=== PATIENT | female | born 1995 | race Caucasian/White ===

== ENCOUNTER → 2020-04-28 | Outpatient (CLI) | payer BC, SELFPAY ==
[2020-04-28 13:57] VITALS: BMI 35.9
[2020-05-01 16:07] LABS: HPV Reflexed? NOT INDICATED
== END | disposition home or self-care (01) ==
LOC: LABSPEC 16:21
PROVIDERS: Visit Provider Nurse Practitioner Women's Health
DX: Z12.4 Encounter for screening for malignant neoplasm of cervix (principal)
CPT/HCPCS: 88175; G0145

== ENCOUNTER → 2020-12-23 11:20 | Outpatient (CLI) | payer BC, SELFPAY ==
[2020-12-23 12:01] LABS: Amphetamine Urine VISTA NEGATIVE (<1000 ng/mL); Barbiturate Urine VISTA NEGATIVE (< 200 ng/mL); Benzodiazepine Urine VISTA NEGATIVE (< 200 ng/mL); Cocaine Urine VISTA NEGATIVE (< 300 ng/mL); Ecstacy Urine VISTA NEGATIVE (< 500 ng/mL); Methadone Urine VISTA NEGATIVE (< 300 ng/mL); PCP Urine VISTA NEGATIVE (< 25 ng/mL); THC Urine VISTA NEGATIVE (< 50 ng/mL); Vista UDS pH Range 5
[2020-12-24 20:08] LABS: Chlamydia By Nucleic Acid AMP Negative (Negative)
[2020-12-24 20:53] LABS: Gonococcus By Nucleic Acid AMP Negative (Negative)
== END ==
PROVIDERS: Visit Provider Obstetrics & Gynecology
DX: Z34.90 Encounter for supervision of normal pregnancy, unspecified, unspecified trimester (principal)
CPT/HCPCS: 80307; 87086; 87491; 87591

== ENCOUNTER → 2021-01-04 10:05 | Outpatient (CLI) | payer BC, SELFPAY ==
[2021-01-04 10:32] LABS: Absolute Lymphocyte Count 2.27 X10^3/uL (0.83-4.51); Absolute Neutrophil Count 8.2 X10^3/uL (2.0-7.7); Basophil# 0.08 X10^3/uL; Basophil% 0.7 % (0-1); Eosinophil# 0.23 X10^3/uL; Eosinophils% 1.9 % (0-5); Hematocrit 40.6 % (37-47); Hemoglobin 13.2 g/dL (12.0-15.0); Lymphocyte # 2.27 X10^3/ul (0.83-4.51); Lymphocyte % 19.2 % (19-41); Mean Corp Hgb Conc 32.5 g/dL (32-36); Mean Corpuscular Hgb 28.6 pg (27.0-32.0); Mean Corpuscular Volume 88.1 fL (81-99); Mean Platelet Vol. 10.7 fl (6.2-12.0); Monocyte# 0.92 X10^3/uL; Monocyte% 7.8 % (0-10); NRBC Flagged by Analyzer 0 % (0-5); Neutrophil # 8.22 X10^3/uL (2.7-7.7); Neutrophil % 69.5 % (47-70); Platelet Count 330 K/mm3 (150-450); RBC Distribution Width CV 13.9 % (11.6-14.6); RBC Distribution Width SD 44.5 fl (35.1-43.9); Red Blood Count 4.61 M/mm3 (4.2-5.4); White Blood Count 11.8 K/mm3 (4.4-11.0)
[2021-01-04 11:00] LABS: Glucose Challenge Gest 1H 50g 82 mg/dL (70-140)
[2021-01-04 11:25] LABS: NATERA MAILED SPECIMEN
[2021-01-04 11:32] LABS: HIV - WCH Non-Reactive (Nonreactive); Hepatitis B Surface Antigen Non-Reactive (Nonreactive); Hepatitis C Antibody Non-Reactive (Nonreactive); Rubella IgG Reactive (Nonreactive); Syphilis Antibodies Non-reactive
== END ==
PROVIDERS: Referring Provider Obstetrics & Gynecology; Visit Provider Obstetrics & Gynecology
DX: O99.211 Obesity complicating pregnancy, first trimester (principal); E66.9 Obesity, unspecified; Z3A.00 Weeks of gestation of pregnancy not specified
CPT/HCPCS: 36415; 82950; 85025; 86703; 86762; 86780; 86803; 86850; 86900; 86901; 87340

== ENCOUNTER 2021-02-27 09:11 | Outpatient (CLI) | payer BC, SELFPAY ==
[2021-02-27] MEDS: 0.9% Saline Lock 10 ML Syringe IV (09:30)
[2021-02-27 09:34] VITALS: BP 121/72; PULSE 94; RESP 16; TEMP 36.8; O2SAT 16; BMI 37.8
[2021-02-27 10:30] VITALS: BP 124/64; PULSE 91; RESP 16; TEMP 36.6; O2SAT 98
[2021-02-27 11:34] VITALS: BP 110/67; PULSE 89; RESP 16; TEMP 36.7; O2SAT 99
== END 2021-02-27 11:35 | disposition home or self-care (01) ==
LOC: MS3OUT 09:12 → MS3 09:12
PROVIDERS: Referring Provider Nurse Practitioner Adult Health; Visit Provider Nurse Practitioner Adult Health
DX: Z23 Encounter for immunization (principal); U07.1 COVID-19
CPT/HCPCS: J7050; M0245; Q0245; A4216

== ENCOUNTER 2021-05-03 13:59 | Outpatient (CLI) | payer BC, SELFPAY ==
[2021-05-03 14:36] LABS: Absolute Lymphocyte Count 2.04 X10^3/uL (0.83-4.51); Absolute Neutrophil Count 9.1 X10^3/uL (2.0-7.7); Basophil# 0.06 X10^3/uL; Basophil% 0.5 % (0-1); Eosinophil# 0.17 X10^3/uL; Eosinophils% 1.4 % (0-5); Hematocrit 33.9 % (37-47); Hemoglobin 11.1 g/dL (12.0-15.0); Lymphocyte # 2.04 X10^3/ul (0.83-4.51); Lymphocyte % 16.8 % (19-41); Mean Corp Hgb Conc 32.7 g/dL (32-36); Mean Corpuscular Hgb 28.4 pg (27.0-32.0); Mean Corpuscular Volume 86.7 fL (81-99); Mean Platelet Vol. 10.5 fl (6.2-12.0); Monocyte# 0.67 X10^3/uL; Monocyte% 5.5 % (0-10); NRBC Flagged by Analyzer 0 % (0-5); Neutrophil # 9.13 X10^3/uL (2.7-7.7); Neutrophil % 75.1 % (47-70); Platelet Count 294 K/mm3 (150-450); RBC Distribution Width CV 14.2 % (11.6-14.6); RBC Distribution Width SD 44.6 fl (35.1-43.9); Red Blood Count 3.91 M/mm3 (4.2-5.4); White Blood Count 12.2 K/mm3 (4.4-11.0)
[2021-05-03 14:53] LABS: Glucose Challenge Gest 1H 50g 148 mg/dL (70-140)
== END 2021-05-03 23:59 | disposition short-term general hospital (02) ==
PROVIDERS: Referring Provider Obstetrics & Gynecology; Visit Provider Obstetrics & Gynecology
DX: O26.899 Other specified pregnancy related conditions, unspecified trimester (principal); Z67.91 Unspecified blood type, Rh negative; Z3A.00 Weeks of gestation of pregnancy not specified
CPT/HCPCS: 36415; 82950; 85025; 86850; 86900; 86901

== ENCOUNTER 2021-05-07 12:55 | Outpatient (CLI) | payer BC, SELFPAY ==
--- NOTE | 2021-05-07 13:00 | US_ITS ---
STUDY: SECOND AND THIRD TRIMESTER OBSTETRICAL ULTRASOUND - LIMITED REASON FOR EXAM: Female, 26 years old growth LMP: 10/16/2020. PRIOR ULTRASOUND: None. TECHNIQUE: Transabdominal TECHNICAL QUALITY: Adequate. FINDINGS: There is a single intrauterine fetus. The fetus is in a breech presentation. There is demonstrated cardiac activity with a heart rate of 138 bpm. There is a normal amniotic fluid volume. The largest amniotic fluid pocket measures 5.83 cm. The amniotic fluid index (NIRANJAN) is 16.49 cm. The placenta is posterior in location and is not low lying. There are Grade 0 placental changes. The cervix measures 3.4 cm in length. BIOMETRY: BPD: 7.79 cm: 31 weeks, 1 days HC: 28.94 cm: 31 weeks, 6 days AC: 25.49 cm: 29 weeks, 4 days FL: 5.62 cm: 29 weeks, 3 days Age by LMP: 29 weeks, 0 days. ALEXANDRA by LMP: 07/23/2021. age by current US: 30 weeks, 4 days. ALEXANDRA by current US: 07/12/2021. Estimated weight: 1484 grams, +/- 223 grams, 72 percentile. US/OB Limited With Biometrics IMPRESSION: Single live intrauterine gestation with a mean gestational age of 30 weeks and 4 days. Electronically Signed: Garrison Campos MD at 13:54 EST , Service support ,
== END 2021-05-07 23:59 | disposition short-term general hospital (02) ==
PROVIDERS: PCP Preventive Medicine Occupational Medicine; Referring Provider Obstetrics & Gynecology; Visit Provider Obstetrics & Gynecology
DX: U07.1 COVID-19 (principal)
CPT/HCPCS: 76816

== ENCOUNTER 2021-05-13 07:03 | Outpatient (CLI) | payer BC, SELFPAY ==
[2021-05-13 08:02] LABS: Glucose GTT-Gestation. Fasting 82 mg/dL (<105)
[2021-05-13 09:33] LABS: Glucose GTT-Gestational 1 Hr 150 mg/dL (<190)
[2021-05-13 10:54] LABS: Glucose GTT-Gestational 2 Hr 114 mg/dL (<165)
[2021-05-13 11:14] LABS: Glucose GTT-Gestational 3 Hr 60 L (<145)
== END 2021-05-13 23:59 | disposition short-term general hospital (02) ==
PROVIDERS: PCP Preventive Medicine Occupational Medicine; Referring Provider Obstetrics & Gynecology; Visit Provider Obstetrics & Gynecology
DX: O99.810 Abnormal glucose complicating pregnancy (principal); Z3A.00 Weeks of gestation of pregnancy not specified
CPT/HCPCS: 36415; 82951; 82952

== ENCOUNTER 2021-07-02 15:00 | Outpatient (CLI) | payer BC, SELFPAY | END 2021-07-02 23:59 | disposition home or self-care (01) | PROVIDERS: PCP Preventive Medicine Occupational Medicine; Visit Provider Obstetrics & Gynecology | DX: Z34.02 Encounter for supervision of normal first pregnancy, second trimester (principal) | CPT/HCPCS: 87081 ==

== ENCOUNTER 2021-07-06 09:39 | Outpatient (CLI) | payer BC, SELFPAY ==
--- NOTE | 2021-07-06 09:43 | US_ITS ---
STUDY: SECOND AND THIRD TRIMESTER OBSTETRICAL ULTRASOUND - LIMITED REASON FOR EXAM: Female, 26 years old growth routine survey LMP: 10/16/2020 PRIOR ULTRASOUND: 05/07/2021 TECHNIQUE: Transabdominal TECHNICAL QUALITY: Adequate. FINDINGS: There is a single intrauterine fetus. The fetus is in a cephalic presentation. There is demonstrated cardiac activity with a heart rate of 158 bpm. There is a normal amniotic fluid volume. The largest amniotic fluid pocket measures 9.70 cm. The amniotic fluid index (NIRANJAN) is 19.4 cm. The placenta is posterior in location and is not low lying. There are Grade 3 placental changes. The cervix was not measured BIOMETRY: BPD: 9.47 cm: 38 weeks, 4 days HC: 34.65 cm: 40 weeks, 1 days AC: 34.37 cm: 38 weeks, 1 days FL: 7.36 cm: 37 weeks, 4 days Age by LMP: 37 weeks, 4 days. ALEXANDRA by LMP: 07/23/2021. age by prior US: 39 weeks, 1 days. ALEXANDRA by prior US: 07/12/2021. age by current US: 38 weeks, 4 days. ALEXANDRA by current US: 07/16/2021. Estimated weight: 3463 grams, +/- 519 grams, 77.6 percentile. US/OB Limited With Biometrics IMPRESSION: Single live intrauterine at 38 weeks, 4 days by current ultrasound with ALEXANDRA of 07/16/2021. Heart rate at 158 bpm. No suspicious sonographic findings, normal growth noted since the previous study. Electronically Signed: Vu Del Cid MD at 13:56 EDT ,
== END 2021-07-06 23:59 | disposition home or self-care (01) ==
PROVIDERS: PCP Preventive Medicine Occupational Medicine; Referring Provider Obstetrics & Gynecology; Visit Provider Obstetrics & Gynecology
DX: O98.519 Other viral diseases complicating pregnancy, unspecified trimester (principal); U07.1 COVID-19
CPT/HCPCS: 76816

== ENCOUNTER 2021-07-27 21:30 | Inpatient (IN) | payer BC, SELFPAY ==
[2021-07-27] VITALS (8 sets, daily range): BP systolic 137–143; BP diastolic 65–82; PULSE 56–96; TEMP 36.3–36.8; O2SAT 97–98; BMI 46.1
[2021-07-27] MEDS: Lactated Ringers 500 ML 999 ML IV (21:30)
[2021-07-27] MEDS: Lactated Ringers 1,000 ML 50 ML IV (21:30)
[2021-07-27 21:54] LABS: Absolute Lymphocyte Count 2.42 X10^3/uL (0.83-4.51); Absolute Neutrophil Count 8.4 X10^3/uL (2.0-7.7); Basophil# 0.05 X10^3/uL; Basophil% 0.4 % (0-1); Eosinophil# 0.15 X10^3/uL; Eosinophils% 1.3 % (0-5); Hematocrit 33.3 % (37-47); Hemoglobin 11.2 g/dL (12.0-15.0); Lymphocyte # 2.42 X10^3/ul (0.83-4.51); Lymphocyte % 20.2 % (19-41); Mean Corp Hgb Conc 33.6 g/dL (32-36); Mean Corpuscular Volume 86.3 fL (81-99); Mean Platelet Vol. 11.4 fl (6.2-12.0); Monocyte# 0.85 X10^3/uL; Monocyte% 7.1 % (0-10); NRBC Flagged by Analyzer 0 % (0-5); Neutrophil # 8.39 X10^3/uL (2.7-7.7); Neutrophil % 70.2 % (47-70); Platelet Count 290 K/mm3 (150-450); RBC Distribution Width CV 14.8 % (11.6-14.6); RBC Distribution Width SD 46.1 fl (35.1-43.9); Red Blood Count 3.86 M/mm3 (4.2-5.4)
--- NOTE | 2021-07-27 22:09 | HP.PCM.OB_ITS ---
HPI - General General Date of Admission: 07/27/21 HPI Narrative KINGA ENNIS, is a 26 F who presents with spontaneous rupture of membranes. she has some meconium stained fluid, contractions started 30 minutes prior but she is still 1/2 cm, dilated. she denies any vb admits good fm. Maternal Data Information ALEXANDRA Calculator Estimated Delivery Date Method Current WG Current Estimate 07/23/21 LMP (Certain) 40w 4d Other Estimates 07/19/21 Ultrasound #1 41w 1d PFSH PFS Medical History (Updated 07/27/21 @ 22:[address] Jolanta Buckner MD) Allergy Anxiety COVID-19 vaccine administered Kidney stone Lab test positive for detection of COVID-19 virus Home Medications allergy shots 1 dose SUBDERMAL QWEEK 04/28/20 [History Last Taken 07/17/21] multivitamin no.47-iron fum 27 mg-folate no.1 1 mg-dha 300 mg capsule 1 cap PO DAILY 12/10/20 [History Last Taken 07/27/21] aspirin 81 mg PO DAILY 02/27/21 [History Last Taken 07/27/21] sertraline [Zoloft] 50 mg PO DAILY 07/27/21 [History Last Taken 07/27/21] Allergy/AdvReac Type Severity Reaction Status Date / Time amoxicillin [Amoxicillin] AdvReac Rash Verified 07/22/21 10:22 sulfamethoxazole AdvReac Fever and Verified 07/22/21 10:22 [From Bactrim] skin rash trimethoprim [From Bactrim] AdvReac Fever and Verified 07/22/21 10:22 skin rash Family History Father Skin cancer Grandmother Diabetes Surgical History History of oral surgery History of tonsillectomy Social History household members: significant other current occupational status: employed current occupation: human resources history of recent travel: No sexually active: Yes Smoking Status: Never smoker alcohol intake: never substance use type: does not use what type of physical activity do you participate in: aerobics frequency: 1-2 times per week seatbelt use: sometimes do you feel safe at home: Yes additional social history: [facility] 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[employer]) History 1 Elective abortions Hx Para 0 Spontaneous abortions Hx # Term Pregnancies Ectopic pregnancies Hx # Pregnancies Multiple births # of living children Visit Details Expected Delivery Route/Plan Labor Preferences- CB/BF classes: on her own labor support person: brianne labor intervention preferences: open pain management options preferred: epidural cut cord/dad catch: yes : yes PP control planned: pill discussed possible routes of delivery and associated risks: [] special requests: [] Plans Covid status: got both doses (last dose 03/05/21) and also had covid this month, tested negative Flu vaccine: plans for visit in March Tdap vaccine: done 05/03 Rhogam: given LARC form signed: declined movement and labor precautions reviewed. Problem list reviewed and updated with the most current plan of care details and appropriate orders placed. Relevant counseling for the gestational age provided. Continue routine care and follow up unless otherwise noted in visit notes/problem list details OB Flowsheet Initial Weight: Not Recorded Date -?-?-?-?-?-?-?-?-?-?-?-?- EGA Weight BP Urine Prot -?-?-?-?-?-?-?-?-?-?-?-?- Glucose FHR FuHt Pres Dilation -?-?-?-?-?-?--?-?-?-?-?-?- Effaced St Visit Note 12/23/20 -?-?-?-?-?-?-?-?-?-?-?-?- 9w 5d 217 lb 2 oz 124/86 -?-?-?-?-?-?-?-?-?-?-?-?- 180 -?-?-?-?-?-?-?-?-?-?-?-?- GP - CRL 29mm co nsistent with LMP 01/19/21 -?-?-?-?-?-?-?-?-?-?-?-?- 13w 4d 222 lb 102/74 Negative -?-?-?-?-?-?-?-?-?-?-?-?- Negative 160 -?-?-?-?-?-?-?-?-?-?-?-?- SM- n ovb crampi ng 02/16/21 -?-?--?-?-?-?-?-?-?-?-?-?- 17w 4d 230 lb 8 oz 118/72 Nega tive -?-?-?-?-?-?-?-?-?-?-?-?- Negative 156 -?-?-?-?-?-?-?-?-?-?-?-?- MH-No VB, LOF. D iscussed Oneg, rhogam. Order MFM US. Pain in coccyx-refer to Dossi. Recent covid vaccine. 03/16/21 -?-?-?-?-?-?-?-?-?-?-?-?- 21w 4d 241 lb 4 oz 120/78 Nega tive -?--?-?-?-?-?-?-?-?-?-?-?- Negative 157 -?-?-?-?-?-?-?-?-?-?-?-?- JV- pt had covid earlier this month and was unable to get her anatomy scan with MFM. She has it planned for next week. She got covid between her vaccine doses. 04/15/21 -?-?-?-?-?-?-?-?-?-?-?-?- 25w 6d 253 lb 4 oz 128/80 Nega tive -?-?-?-?-?-?-?-?-?-?-?-?- Negative 134 -?-?-?-?-?-?-?-?-?-?-?-?- JV- no lof, vagi nal bleeding, cramping and + FM. pt is having anxiety recently and prior to . She has worries about the FOB not being adequate, etc. She is interested in starting zoloft. 05/03/21 -?-?-?-?-?-?-?-?-?-?-?-?- 28w 3d 249 lb 120/80 Negative -?-?-?-?-?-?-?-?-?-?-?-?- Negative 135 32 -?-?-?-?-?-?-?-?-?-?-?-?- JV- no lof, vagi nal bleeding, or dec fm. pt failed 1 hr gct, 3 hr ordered. tdap and rhogam given 05/19/21 -?-?-?-?-?-?-?-?-?-?-?-?- 30w 5d 250 lb 4 oz 120/84 Nega tive -?-?-?-?-?-?-?-?-?-?-?-?- Negative 142 -?-?-?-?-?-?-?-?-?-?-?-?- JV- no lof, vagi nal bleeding or dec fm 06/04/21 -?-?-?-?-?-?-?-?-?-?-?-?- 33w 0d 253 lb 120/88 Negative -?-?-?-?-?-?-?-?-?-?-?-?- Negative 140 34 -?-?-?-?--?-?-?-?-?-?-?-?- SM- no vb lof go od fm nor egular ctx 06/18/21 -?-?-?-?-?-?-?-?-?-?-?-?- 35w 0d 257 lb 8 oz 130/80 Nega tive -?-?-?-?-?-?-?-?-?-?-?-?- Negative 159 36 -?-?-?-?-?-?-?-?-?-?-?-?- JV- no lof, vag bleeding or dec fm no complaints today 06/24/21 -?-?-?-?-?-?-?-?-?-?-?-?- 35w 6d 259 lb 128/82 Negative -?-?-?-?-?-?-?-?-?-?-?-?- Negative 126 36 Cephalic -?-?-?-?-?-?-?-?-?-?-?-?- JV- no lof ,vagi nal bleeding ,or dec fm 07/02/21 -?-?-?-?-?-?-?-?-?-?-?-?- 37w 0d 260 lb 4 oz 120/78 Nega tive -?-?-?-?-?-?-?-?-?-?-?-?- Negative 137 Cephalic 0 -?-?-?-?-?-?-?-?-?-?-?-?- JV- patient very uncomfortable with pelvic exam. growth scan today. She inquired about induction which we touched on today, 07/09/21 -?-?-?-?-?-?-?-?-?-?-?-?- 38w 0d 262 lb 120/82 Negative -?-?-?-?-?-?-?-?-?-?-?-?- Negative 145 38 Cephalic 0 -?-?-?-?-?-?-?-?-?-?-?-?- SM- no vb lof go od fm no regular ctx 07/16/21 -?-?-?-?-?-?-?-?-?-?-?-?- 39w 0d 265 lb 2 oz 132/78 Nega tive -?-?-?-?-?-?-?-?-?-?-?-?- Negative 150 39 Cephalic 0 -?-?-?-?-?-?-?-?-?-?-?-?- SM- no vb lof go od fm nor egular ctx 07/22/21 -?-?-?-?-?-?-?-?-?-?-?-?- 39w 6d 270 lb 2 oz 122/84 Nega tive -?-?-?-?-?-?-?-?-?-?-?-?- Negative 140 42 Cephalic 0 .5 -?-?-?-?-?-?-?-?-?-?-?-?- 50 -1 SM- SM- no vb lof good fm no reg ular ctx SM- no vb lof good fm no reg ular ctx discussed growth us and 41 week IOL if no spontaneous labor 07/27/21 -?-?-?-?-?-?-?-?-?-?-?-?- 40w 4d 269 lb 143/82 -?-?-?-?-?-?-?-?-?-?-?-?- -?-?-?-?-?-?-?-?-?-?-?-?- NST FHR Rate Baby A Baseline: 140 Variability:: Moderate Accelerations:: 15 x 15 Decelerations:: None NST Reactive:: Yes FHR Category:: Category I Uterine Activity:: irregular ROS Constitutional Constitutional: Reports systems reviewed and no addt'l complaints, except as documented Eyes Eyes: Denies change in vision ENT HEENT: Reports systems reviewed and no addt'l complaints, except as documented; Denies headache(s) Cardiovascular Cardiovascular: Reports systems reviewed and no addt'l complaints, except as documented; Denies chest pain or dyspnea Respiratory/Chest Respiratory/Chest: Reports systems reviewed and no addt'l complaints, except as documented Gastrointestinal Gastrointestinal: Reports systems reviewed and no addt'l complaints, except as documented; Denies abdominal pain Genitourinary Genitourinary: Reports systems reviewed and no addt'l complaints, except as documented, contractions Details: present (irregular) and movement Details: present; Denies dysuria or genital lesions Musculoskeletal Musculoskeletal: Reports systems reviewed and no addt'l complaints, except as documented Neurologic Neurologic: Reports systems reviewed and no addt'l complaints, except as documented Endocrine Endocrinology: Reports systems reviewed and no addt'l complaints, except as documented Vital Signs Vital Signs Vital Signs: 07/27/21 21:24 07/27/21 21:25 07/27/21 21:30 Temperature 98.2 F Temperature Source Temporal Pulse Rate 84 82 96 Blood Pressure 143/82 H BP Systolic 143 BP Diastolic 82 Pulse Ox 97 97 07/27/21 21:35 07/27/21 21:40 Temperature Temperature Source Pulse Rate 87 77 Blood Pressure BP Systolic BP Diastolic Pulse Ox 98 98 Weight Weight: 269 lb Body Mass Index (BMI) 46.1 Physical Exam Const alert, oriented x3, no apparent distress and healthy appearing HEENT normocephalic and moist oral mucous membranes Head and Scalp: atraumatic Neck full ROM, no lymphadenopathy, supple and thyroid normal General: trachea midline Lymph Lymphatic: no lymphadenopathy noted Chest inspection of chest normal Resp normal respiratory effort Cardio regular rate GI normal to inspection, nondistended, normoactive bowel sounds, soft to palpation and non-tender Inspection: gravid external exam normal Manual OB Exam: estimated gestational size appropriate, presentation cephalic, dilated, effaced and station Extremity normal to inspection General Extremity: Negative for edema Skin no rashes or lesions noted Neuro no focal motor deficits and deep tendon reflexes 2+ bilaterally Motor Exam: strength 5/5 throughout and clonus absent Psych mental status grossly normal Labs Labs Labs: Blood Type O NEGATIVE Antibody Screen NEGATIVE Hct 33.3 % (37-47) L Hgb 11.2 g/dL (12.0-15.0) L Obstetrics US Syphilis Total Ab Non-reactive Rubella IgG Antibody Reactive (Nonreactive) Hep Bs Antigen Non-Reactive (Nonreactive) Chlamydia DNA (JAMI) Negative (Negative) Neisseria gonorrhoeae DNA (JAMI) Negative (Negative) HIV 1&2 Antibody Non-Reactive (Nonreactive) Glucose 1 Hr 50 gm 148 mg/dL (70-140) H Assessment & Plan (1) Meconium in amniotic fluid: (2) SROM (spontaneous rupture of membranes): COMMENT: admit in labor, pitocin if no cervical change. epi PRN (3) Elevated blood pressure complicating , antepartum: COMMENT: upon l and d admission, pree labs sent, mildly elevated (4) : QUALIFIERS: Weeks of gestation: 39 weeks Qualified Code(s): Z3A.39 - 39 weeks gestation of COMMENT: anatomy nl, NIPT low risk. Declines carrier and AFP. GBS neg (5) Supervision of normal : QUALIFIERS: Normal : normal first Trimester: second trimester Qualified Code(s): Z34.02 - Encounter for supervision of normal first , second trimester COMMENT: PRR ALEXANDRA: 07/23/21, boy, BF: Brianne (6) Rh negative state in antepartum period: COMMENT: rhogam 28 wk and prn bleeding (7) Abnormal glucose affecting : COMMENT: NL 3 hr glucose test (8) Lab test positive for detection of COVID-19 virus: COMMENT: daily ASA and growth US @ 32, 36 wks, 05/07 growth nl (9) Allergy: COMMENT: environmental- takes allergy injections
[2021-07-27 22:34] LABS: AST(SGOT) 21 U/L (15-37); Alanine Aminotransfer ALT/SGPT 18 U/L (13-56); Creatinine, Serum 0.66 mg/dL (0.55-1.02); EST Glomerular Filtration Rate 116 mL/min (>60); Est Glom Filt Rate - Afr Amer 140 mL/min (>60)
[2021-07-28] VITALS (87 sets, daily range): BP systolic 88–144; BP diastolic 48–88; PULSE 56–108; RESP 16–18; TEMP 36.1–37.3; O2SAT 82–100
[2021-07-28] MEDS: Lactated Ringers 500 ML 999 ML IV ×4 (01:33→14:04)
[2021-07-28] MEDS: fentaNYL-bupivacaine (epidural) 100 ML BAG EPIDURAL ×4 (02:57→16:47)
[2021-07-28] MEDS: Oxytocin 30 units/NS 500 ml 30 UNITS/500 ML IV.SOLN IV (03:00)
[2021-07-28] MEDS: Lactated Ringers 1,000 ML 200 ML IV ×3 (07:06→18:32)
--- NOTE | 2021-07-28 08:20 | PN_ITS ---
Progress Note pt has epidural in place but still reports feeling moderate pain on left hip current tracing: FHT: Moderate variability reactive no decelerations category I tracing Chalfont: q2 min Contractions cx last check was at 7:30 per Nurse Ashia and was 1 cm dilated A/P: prom on pit -anesthesia to see patient about ongoing pain continue increasing pitocin. plan for pelvic exam again around 10
[2021-07-28] MEDS: Acetaminophen 500 MG Tablet PO (20:33)
[2021-07-28] MEDS: Sodium Citrate/Citric Acid 30 ML UDC PO (20:33)
--- NOTE | 2021-07-28 20:45 | PCM.DC ---
Discharge Instructions Diet Discharge Diet: No restrictions Activity Discharge Activity: May Not Drive (for 2 weeks or while taking narcotic pain medications.), May Shower and May Take a Tub Bath (in 7 days.) May resume sexual activity in: 4-6 weeks Weight Bearing Status: Full weight bearing Lifting Restrictions: 20 pounds Dressing / Incision Call your doctor if your incision/area has: Continuous Slow Oozing, Sudden Increased Bleeding, Increased Pain/ Swelling, Increased Redness and Foul Smelling Discharge Call your doctor if you observe: Fever of 101 or Higher and Using more than 1 pad per hour Suture Line Care: Avoid Pulling/Pushing and Avoid Pinching/Bending Cleanse incision/area with: Soap & Water and Keep Dressing Clean & Dry Follow Up Care Please Follow Up With: Yennifer Farah DO When: Call [phone] to make an appointment for an incision check in 1-2 weeks. Test Results: Test results from this visit will be discussed in further detail at your follow-up appointment, if applicable. Discharge Plan Admission Admit Date/Time: 07/27/21 21:30 Primary Reason for Your Visit: section Attending Provider: Yennifer Farah Primary Care Provider: Kailash Blood Discharge Orders/Prescriptions Prescriptions: New ibuprofen 800 mg tablet 800 mg PO Q8H PRN (Reason: pain) 7 Days Qty: 30 RF: 0 oxycodone-acetaminophen [Percocet] 5-325 mg tablet 1 tab PO Q4H PRN (Reason: pain) 7 Days RF: 0 oxycodone-acetaminophen [Percocet] 5-325 mg tablet 1 tab PO Q4H PRN (Reason: pain) 7 Days Qty: 30 RF: 0 ibuprofen 800 mg tablet 800 mg PO Q8H PRN (Reason: pain) 7 Days Qty: 30 RF: 0 Continued allergy shots 1 dose subdermal QWEEK RF: 0 PNV-DHA 27 mg iron-1 mg -300 mg capsule 1 cap PO DAILY RF: 0 sertraline [Zoloft] 50 mg tablet 50 mg PO DAILY RF: 0 Discontinued aspirin 81 mg Capsule 81 mg PO DAILY RF: 0 Referrals / Follow Up: Kailash Blood DO [Primary Care Provider] - Disposition Disposition (needs filled in before D/C Order can be placed): Home, Self Care
--- NOTE | 2021-07-28 21:07 | PLAC_PTH ---
PATIENT: KINGA ENNIS LOC: [facility] U#:[id number] AGE/SX: 26/F ROOM: [facility] RE07/27/[address]: Dr. Yennifer Farah DO : 1995 BED: 1 DIS: 07/30/2021 SPEC #: [id number] RECD: 07/29/21 01:56 STATUS: ITA BOWERHeather #: [id number] ROBINA: 07/28/21 21:[address]: Yennifer Farah DEPT: SURGICAL PATHOLOGY RECD BY: Marli Contreras ENTERED: 07/29/21 09:01 SP TYPE: PLACENTA OTHR DR: DO Dr. Jolanta Cote MD Tissues: Placenta, NOS Procedures: Surgery Specimen Level V HEADER OPERATION: Primary section PRE-OP DIAGNOSIS: Chorio TISSUE SUBMITTED: Placenta MICROSCOPIC DIAGNOSIS Keys placenta (713 gm): Umbilical cord ? trivascular with no evidence of inflammation. Placental membranes ? occasional pigmented macrophages suggestive of meconium staining. Placental disc ? organizing intraparenchymal hemorrhage, Michelle-Butch change and intravillous congestion. AM:martha 08/02/2021 MICROSCOPIC DESCRIPTION Slides are reviewed. GROSS DESCRIPTION SPECIMEN: PLACENTA / CLINICAL INFORMATION: A. Weight: 3.58 kg B. Gestational Age: 40 weeks C. Sex: Male PLACENTAL WEIGHT (POST FIXATION): 713 gm PLACENTAL DIMENSIONS: 21 x 21 x 4 cm PLACENTAL SHAPE: Usual ovoid PLACENTAL WEIGHT FOR GESTATIONAL AGE: Over 99th percentile MEMBRANES - Present A. Insertion: Marginal B. Site of rupture from edge: Distance of rupture cannot be assessed due to fragmented nature of the membrane. C. Color of membrane: Batista, mucoidy D. Abnormalities: None UMBILICAL CORD - Present A. Color: Batista-guerra B. Insertion: Paracentral C. Length: 58 cm D. Diameter: 1.2 cm E. Number of vessels: Three F. Abnormalities: A few false knots are noted. PLACENTAL DISC - Present A. Color of surface: Batista-guerra B. surface abnormalities: None C. Maternal cotyledons: Intact with minimal tears D. Attached retro placental clot: No clot E. Cut surface: Dark red and spongy F. Lesions: Sections reveal batista, indurated to hemorrhagic lesion measuring 0.5 and 2.5 cm in greatest dimension in the central portion of the placenta and 1 cm in greatest dimension in the peripheral portion of the placenta. G. Separate clot: Absent SECTIONS SUBMITTED: 1. Membrane roll 2. Cord, maternal end 3. Cord, end, peripheral lesion 4. Placental disc, and maternal surfaces, lesion in central portion of the placenta 5. Placental disc, and maternal surfaces, lesion in central portion of the placenta 6. Placental disc, and maternal surfaces 7. Additional membranes SJ:martha 08/02/2021 TC:5 CPT: 65994
--- NOTE | 2021-07-28 22:08 | OP.PCM_ITS ---
Maternal Data Information ALEXANDRA Calculator Estimated Delivery Date Method Current WG Current Estimate 07/23/21 LMP (Certain) 40w 5d Other Estimates 07/19/21 Ultrasound #1 41w 2d Details Operative Information Date of Procedure: 07/28/21 Pre-Operative Diagnosis: 40 weeks 5 days, failure to descend, failed vacuum extraction, suspected chorioamnionitis Post-Operative Diagnosis: 40 weeks 5 days, failure to descend, failed vacuum extraction, suspected chorioamnionitis Classification: JEFF Procedure Type: low transverse lead pl sql developer #1: Tamir Peralta Type of Anesthesia: Epidural Anesthesiologist: Stephen Trujillo Antibiotic Given: Ancef 3 grams IV x1 and Zithromax 500 mg/5 mL X1 Drain: Oleary to straight drain Estimated Blood Loss: 800cc Findings Description of Procedure: A kiwi vacuum was attempted during labor and 3 pop offs occurred. The decision was made to proceed with a section. Oleary catheter was placed. The patient was placed in the dorsal supine position with leftward tilt. Patient was prepped and draped in the normal sterile fashion. Pfannenstiel skin incision was made with the scalpel and carried through to the underlying layer of fascia with the scalpel. Fascia was nicked in the midline and the incision extended laterally. The rectus bellies were dissected off superiorly and inferiorly with out complication both sharply and bluntly. The peritoneum was entered digitally. The incision was stretched and a low transverse uterine incision was made with the scalpel. The 's head was found to be deep in the pelvis but delivered atraumatically with a hand from above reaching low into the cervix. The head delivered followed by the anterior and posterior shoulders without complication the rest of the delivered. The cord was clamped and cut and the was handed off to awaiting nurse. The placenta was delivered spontaneously immediately following and was noted to be intact and have a three- vessel cord. The uterus was exteriorized cleared of all clots and debris, and the incision was noted to have deep extension bilaterally and closed in a double layer closure using #1 Monocryl. The bladder was back filled with saline and noted to be water tight. Once this was achieved, further repair was made of the bleeding extensions. The ovaries and fallopian tubes were noted to be within normal limits. The uterus was returned to the maternal abdomen and gutters were cleared of all clots and debris. The peritoneum was closed with 3-0 Monocryl in a running fashion. Gloves were changed prior to fascial closure. Fascia was closed with 0 PDS in a running fashion. Subcutaneous tissue was copiously irrigated and the skin was closed with 3-0 Monocryl in a subcuticular fashion. Mepilex dressing was applied without complication. Patient was taken to recovery in stable condition. It was discussed with the patient that based on the clinical information obtained during this encounter, combined with her history, at this time I would recommend repeat section first for future deliveries if further pregnancies are desired, however is not contraindicated based surgical repair and could be considered. Presentation: Positive for Vertex Amniotic Membrane Rupture Type: Spontaneous Amniotic Fluid Description: Cloudy Cord Vessel Description: 3 Vessels Cord Entanglement: Around neck x 1, loose Nuchal Cord Compression: Without compression Cord Gases: ABG and VBG Infant A Gender: Male (1 minute): 8 (5 minute): 9 Delayed Cord Clamping: No Complications Risks of Surgery Discussed w/Patient: Bleeding, Anesthesia Risks, Infection and Need for Future C-Sections Complications: no complications Multi Select Codes Urinary/Genital Urinary/Genital CPT Codes: 94456 Delivery [facility]
[2021-07-28] MEDS: Oxytocin 30 units/NS 500 ml 30 UNITS/500 ML IV.SOLN 167 UNITS IV (22:45)
[2021-07-29] VITALS (22 sets, daily range): BP systolic 107–143; BP diastolic 7–87; PULSE 99–118; RESP 12–18; TEMP 36.1–37.1; O2SAT 94–99
--- NOTE | 2021-07-29 01:47 | NURSING ---
epidural cath discontinued. blue tip intact
[2021-07-29] MEDS: Lactated Ringers 1,000 ML 100 ML IV ×2 (01:53→12:09)
--- NOTE | 2021-07-29 02:48 | NURSING ---
Folseal was ordered by , was prepared in OR but not given
[2021-07-29] MEDS: Acetaminophen 500 MG Tablet 1000 MG PO ×4 (03:11→22:05)
--- NOTE | 2021-07-29 03:18 | NURSING ---
called by this RN. updated that pt is becoming painful. reporting abd/incisional pain 10/01, Fundus firm at Umbilicus. small amts of lochia. urine output 400cc over 2 hours. pts hr 90-100 when resting. when pt talking/ infant HR increased briefly to 113. new order to give toradol now, hold next dose until morning CBC results are reviewed by physician
[2021-07-29] MEDS: Ketorolac 30 MG/ML Syringe IV ×4 (03:36→22:05)
[2021-07-29 05:33] LABS: Hematocrit 26.1 % (37-47); Hemoglobin 8.7 g/dL (12.0-15.0); Mean Corp Hgb Conc 33.3 g/dL (32-36); Mean Corpuscular Hgb 28.6 pg (27.0-32.0); Mean Corpuscular Volume 85.9 fL (81-99); Mean Platelet Vol. 11.4 fl (6.2-12.0); Platelet Count 256 K/mm3 (150-450); RBC Distribution Width CV 15.2 % (11.6-14.6); RBC Distribution Width SD 46.9 fl (35.1-43.9); Red Blood Count 3.04 M/mm3 (4.2-5.4); White Blood Count 17.5 K/mm3 (4.4-11.0)
--- NOTE | 2021-07-29 08:55 | PCM.PN.OB ---
Subjective Subjective Patient doing well without complaints. Tolerating PO. Ambulated minimally this am without difficulty. Feeding well. Denies chest pain, shortness of breath, calf pain/swelling, fevers, chills, lightheadedness. Objective Data Objective Data Vital Signs: Vital Signs Temp Pulse Resp BP Pulse Ox 97.7 F L 102 H 16 135/80 H 98 07/29/21 07:37 07/29/21 07:37 07/29/21 07:37 07/29/21 07:37 07/29/21 07:37 Oxygen Delivery Method Room Air Weight: 269 lb Body Mass Index (BMI) 46.1 Intake & Output: Intake and Output for Last 24 Hours 07/27/21 07/28/21 07/29/21 23:59 23:59 23:59 Intake Total 500 / 500 7216.79 / 7216.79 700 / 700 Output Total 3650 / 3650 850 / 850 Balance 500 / 500 3566.79 / 3566.79 -150 / -150 Lab / Micro Data Result Diagrams: 07/29/21 05:20 07/27/21 21:30 Labs: Laboratory Results - last 24 hr 07/29/21 05:20: WBC 17.5 H, RBC 3.04 L, Hgb 8.7 L, Hct 26.1 L, MCV 85.9, MCH 28.6, MCHC 33.3, RDW Std Deviation 46.9 H, RDW Coeff of Nani 15.2 H, Plt Count 256, MPV 11.4 07/29/21 05:20: Baby's Blood Type O POSITIVE, Baby's MIC NEGATIVE Micro: Microbiology 07/27/21 22:45 Nasal Secretion SARS-CoV-2 Antigen (Rapid) - Final ROS Constitutional Constitutional: Reports systems reviewed and no addt'l complaints, except as documented Cardiovascular Cardiovascular: Denies chest pain, dizziness, dyspnea or irregular heart rhythm Respiratory/Chest Respiratory/Chest: Denies cough, pain on inspiration or shortness of breath at rest Gastrointestinal Gastrointestinal: Denies abdominal pain, nausea or vomiting Genitourinary Genitourinary: Denies burning urination Musculoskeletal Musculoskeletal: Denies muscle cramps, muscle spasms or muscle weakness Neurologic Neurologic: Denies confusion, dizziness, headache(s) or lack of coordination Psychiatric Psychiatric: Denies anxiety, behavioral changes or depression Physical Exam HEENT normocephalic Resp normal respiratory effort and normal air movement GI soft to palpation, non-tender and non-distended Rectal Exam: other Other Details: Incision is clean, dry, and intact no CVA tenderness Extremity normal to inspection General Extremity: edema bilateral (trace ) Assessment & Plan (1) Status post section: (2) Elevated blood pressure complicating , antepartum: COMMENT: upon l and d admission, pree labs sent, mildly elevated (3) SROM (spontaneous rupture of membranes): COMMENT: admit in labor, pitocin if no cervical change. epi PRN (4) Meconium in amniotic fluid: (5) : QUALIFIERS: Weeks of gestation: 39 weeks Qualified Code(s): Z3A.39 - 39 weeks gestation of COMMENT: anatomy nl, NIPT low risk. Declines carrier and AFP. GBS neg (6) Supervision of normal : QUALIFIERS: Normal : normal first Trimester: second trimester Qualified Code(s): Z34.02 - Encounter for supervision of normal first , second trimester COMMENT: PRR ALEXANDRA: 07/23/21, boy, BF: Keontae (7) Rh negative state in antepartum period: COMMENT: rhogam 28 wk and prn bleeding (8) Abnormal glucose affecting : COMMENT: NL 3 hr glucose test (9) Lab test positive for detection of COVID-19 virus: COMMENT: daily ASA and growth US @ 32, 36 wks, 05/07 growth nl (10) Allergy: COMMENT: environmental- takes allergy injections PLAN: s/p LTCS PPD # 1- failed vacuum extraction, surgery was significant for extensions of incision to cervix bilaterally 1. routine post care 2. breast feeding- support given 3. rh positive 4. rubella immune 5. retain hsieh today and plan for dc tonight if urine remains clear. currently carlota appearing and likely due to dehydration and not blood.
[2021-07-29] MEDS: Enoxaparin 40 MG/0.4 ML Syringe SC (09:16)
[2021-07-29] MEDS: Sertraline 50 MG Tablet PO (09:16)
[2021-07-29] MEDS: Prenatal Vits Tablet 1 TABLET PO (09:17)
[2021-07-29] MEDS: Senna/Docusate Sodium 1 Tablet PO (09:17)
[2021-07-29] MEDS: 0.9% Saline Lock 10 ML Syringe IV (22:04)
[2021-07-30 02:45] VITALS: BP 123/75; PULSE 105; RESP 18; TEMP 36.8; O2SAT 95
[2021-07-30] MEDS: Ibuprofen 600 MG Tablet PO ×2 (03:51→09:20)
[2021-07-30] MEDS: Acetaminophen 500 MG Tablet 1000 MG PO ×2 (03:52→09:20)
--- NOTE | 2021-07-30 08:09 | PCM.DC.SUM ---
Providers Date of Admission: 07/27/21 Primary Care Physician: Dr. Kailash Blood DO Reason For Visit: PRIMARY CSECTION Diagnosis Discharge Diagnosis (1) Status post section: Status: Acute Code(s): Z98.891 - History of uterine scar from previous surgery (2) Elevated blood pressure complicating , antepartum: Status: Acute Code(s): O16.9 - Unspecified maternal hypertension, unspecified trimester (3) SROM (spontaneous rupture of membranes): Status: Acute (4) Meconium in amniotic fluid: Status: Acute Code(s): P96.83 - Meconium staining (5) : Status: Acute Code(s): Z34.90 - Encounter for supervision of normal , unspecified, unspecified trimester Qualifiers: Weeks of gestation: 39 weeks Qualified Code(s): Z3A.39 - 39 weeks gestation of (6) Supervision of normal : Status: Acute Code(s): Z34.90 - Encounter for supervision of normal , unspecified, unspecified trimester Qualifiers: Normal : normal first Trimester: second trimester Qualified Code(s): Z34.02 - Encounter for supervision of normal first , second trimester (7) Rh negative state in antepartum period: Status: Acute Code(s): O26.899 - Other specified related conditions, unspecified trimester; Z67.91 - Unspecified blood type, Rh negative (8) Abnormal glucose affecting : Status: Acute Code(s): O99.810 - Abnormal glucose complicating (9) Lab test positive for detection of COVID-19 virus: Status: Acute Code(s): U07.1 - COVID-19 (10) Allergy: Status: Acute Code(s): T78.40XA - Allergy, unspecified, initial encounter Medications at Discharge Home Medications allergy shots 1 dose SUBDERMAL QWEEK 04/28/20 multivitamin no.47-iron fum 27 mg-folate no.1 1 mg-dha 300 mg capsule 1 cap PO DAILY 12/10/20 sertraline [Zoloft] 50 mg PO DAILY 07/27/21 ibuprofen 800 mg PO Q8H PRN 7 Days #30 tab 07/28/21 oxycodone-acetaminophen [Percocet] 1 tab PO Q4H PRN 7 Days tab 07/28/21 oxycodone-acetaminophen [Percocet] 1 tab PO Q4H PRN 7 Days #30 tab 07/28/21 ibuprofen 800 mg PO Q8H PRN 7 Days #30 tab 07/29/21 Hospital Course Operations - ( section ) Summary of Care Provided Minutes Spent on Discharge: 20 Hospital Course: The patient was admitted on 07/27/2021 fo rupture of membranes at 40 weeks She progressed to completely dilated on 07/28/2021. She pushed for almost 4 hours and had a failed vacuum extraction and was take for an urgent section on 07/28/2021. On post op day #1 her hsieh catheter was left in tact for a total of 24 hours. After 24 hours the hsieh was removed and she was able to void on her own without difficulty. On post op day #2 she was ambulating well and requesting to go home. Physical Exam HEENT normocephalic Resp normal respiratory effort and normal air movement GI soft to palpation, non-tender and non-distended Rectal Exam: other Other Details: Incision is clean, dry, and intact no CVA tenderness Extremity normal to inspection General Extremity: edema bilateral (trace ) Weight / BMI Weight Weight: 269 lb Body Mass Index (BMI) 46.1 ABG / Lab / Microbiology Data Result Diagrams: 07/29/21 05:20 07/27/21 21:30 Laboratory: Laboratory Results - last 24 hr 07/29/21 05:20: Screen NEGATIVE Microbiology: Microbiology 07/27/21 22:45 Nasal Secretion SARS-CoV-2 Antigen (Rapid) - Final D/C Instructions Discharge Diet: No restrictions May resume sexual activity in: 4-6 weeks Weight Bearing Status: Full weight bearing Call your doctor if your incision/area has: Continuous Slow Oozing, Sudden Increased Bleeding, Increased Pain/ Swelling, Increased Redness and Foul Smelling Discharge Call your doctor if you observe: Fever of 101 or Higher and Using more than 1 pad per hour Suture Line Care: Avoid Pulling/Pushing and Avoid Pinching/Bending Cleanse incision/area with: Soap & Water and Keep Dressing Clean & Dry Please Follow Up With: Yennifer Farah DO When: Call [phone] to make an appointment for an incision check in 1-2 weeks. Meaningful Use Info Meaningful Use Diagnoses (Choose all that apply): None applicable Discharge Plan Admission Admit Date/Time: 07/27/21 21:30 Primary Reason for Your Visit: section Attending Provider: Yennifer Farah Primary Care Provider: Kailash Blood Discharge Orders/Prescriptions Prescriptions: New ibuprofen 800 mg tablet 800 mg PO Q8H PRN (Reason: pain) 7 Days Qty: 30 RF: 0 oxycodone-acetaminophen [Percocet] 5-325 mg tablet 1 tab PO Q4H PRN (Reason: pain) 7 Days RF: 0 oxycodone-acetaminophen [Percocet] 5-325 mg tablet 1 tab PO Q4H PRN (Reason: pain) 7 Days Qty: 30 RF: 0 ibuprofen 800 mg tablet 800 mg PO Q8H PRN (Reason: pain) 7 Days Qty: 30 RF: 0 Continued allergy shots 1 dose subdermal QWEEK RF: 0 PNV-DHA 27 mg iron-1 mg -300 mg capsule 1 cap PO DAILY RF: 0 sertraline [Zoloft] 50 mg tablet 50 mg PO DAILY RF: 0 Discontinued aspirin 81 mg Capsule 81 mg PO DAILY RF: 0 Referrals / Follow Up: Kailash Blood DO [Primary Care Provider] -
[2021-07-30 09:13] VITALS: BP 122/66; PULSE 100; RESP 16; TEMP 36.4; O2SAT 97
[2021-07-30] MEDS: Senna/Docusate Sodium 1 Tablet PO (10:18)
[2021-07-30] MEDS: Sertraline 50 MG Tablet PO (10:18)
[2021-07-30] MEDS: Enoxaparin 40 MG/0.4 ML Syringe SC (10:19)
--- NOTE | 2021-07-30 13:23 | NURSING ---
This RN has reviewed and agrees with charting completed by alan Kern RN
[2021-08-04 09:04] LABS: Pathology Specimen OB SEE PATHOLOGY REPORT
== END 2021-07-30 13:10 | disposition home or self-care (01) | DRG 788 ==
LOC: WP 21:32 → WPOUT 21:32
PROVIDERS: Admitting Provider Obstetrics & Gynecology; PCP Preventive Medicine Occupational Medicine; Visit Provider Obstetrics & Gynecology
DX: O48.0 Post-term pregnancy (principal); O16.4 Unspecified maternal hypertension, complicating childbirth; O66.5 Attempted application of vacuum extractor and forceps; O62.1 Secondary uterine inertia; O77.0 Labor and delivery complicated by meconium in amniotic fluid; O69.81X0 Labor and delivery complicated by cord around neck, without compression, not applicable or unspecified; Z20.822 Contact with and (suspected) exposure to COVID-19; Z79.82 Long term (current) use of aspirin; Z3A.40 40 weeks gestation of pregnancy; Z37.0 Single live birth
CPT/HCPCS: 59025; 59050; 82565; 84450; 84460; 84550; 85025; 85027; 85461; 86850; 86900; 86901; 87426; 88307; 90384; 99218; 99251; J7120; A4216; G0378; G0463; J2790